=== PATIENT | male | born 1935 | race Caucasian/White ===

== ENCOUNTER → 2016-10-26 | Outpatient (CLI) | payer MEDICARE, BC | END | disposition home or self-care (01) | LOC: PCVCCLINIC 10:46 | PROVIDERS: ATTEND Internal Medicine Cardiovascular Disease | DX: I48.91 Unspecified atrial fibrillation (principal); I25.10 Atherosclerotic heart disease of native coronary artery without angina pectoris; I10 Essential (primary) hypertension; I77.89 Other specified disorders of arteries and arterioles; E11.9 Type 2 diabetes mellitus without complications; E78.00 Pure hypercholesterolemia, unspecified; Z90.49 Acquired absence of other specified parts of digestive tract; Z96.653 Presence of artificial knee joint, bilateral; Z87.891 Personal history of nicotine dependence; Z79.84 Long term (current) use of oral hypoglycemic drugs | CPT/HCPCS: 80061; 93005; G0463 ==

== ENCOUNTER → 2017-07-26 | Outpatient (CLI) | payer MEDICARE, BC | END | disposition home or self-care (01) | LOC: PCVCIMAG 12:19 | DX: I65.23 Occlusion and stenosis of bilateral carotid arteries (principal); I25.10 Atherosclerotic heart disease of native coronary artery without angina pectoris; I10 Essential (primary) hypertension; E78.5 Hyperlipidemia, unspecified; E11.9 Type 2 diabetes mellitus without complications; I48.2 Chronic atrial fibrillation; Z79.4 Long term (current) use of insulin; Z88.8 Allergy status to other drugs, medicaments and biological substances; Z87.891 Personal history of nicotine dependence; Z79.899 Other long term (current) drug therapy | CPT/HCPCS: 80061; 93005; 93880; G0463 ==

== ENCOUNTER → 2018-04-27 | Outpatient (CLI) | payer MEDICARE, BC | END | disposition home or self-care (01) | LOC: PCVCCLINIC 10:21 | PROVIDERS: ATTEND Internal Medicine Cardiovascular Disease | DX: I48.2 Chronic atrial fibrillation (principal); I25.10 Atherosclerotic heart disease of native coronary artery without angina pectoris; E11.9 Type 2 diabetes mellitus without complications; E78.00 Pure hypercholesterolemia, unspecified; I10 Essential (primary) hypertension; Z87.891 Personal history of nicotine dependence | CPT/HCPCS: 93005; G0463 ==

== ENCOUNTER → 2018-05-04 | Outpatient (CLI) | payer MEDICARE, BC ==
[~2018-05-04] MED LIST: REGADENOSON 0.4 MG/5 ML DISP.SYRIN. IV ONE
--- NOTE | 2018-05-05 12:47 | PCVCIMAG ---
APPROVED REPORT Imaging Protocol: Rest Tc-99m/Stress Tc-99m 1 day Study performed: 05/04/2018 12:55:27 Indication: Atrial Fibrillation Patient Location: Out-Patient Stress Nurse: Merary Melara RN, Ermelinda Nguyen RN [place] Tech:Esmer Renata [facility] Ht: 6 ft 1 in Wt: 230 lbs BSA: 2.28 m2 HR: 92 bpm BP: 121/73 mmHg BMI: 30.3 Rhythm: Atrial Fibrillation Medical History Medical History: HTN, Hyperlipidemia, Atrial Fibrillation, Diabetic Insulin, Former Smoker, CVD Medications: Xarelto, Tenormin, Atorvastatin, Chlorthalidone, Losartan, Insulin Allergies: Percocet Cardiac Risk Factors: Age Previous Cardiac Procedures: 2005 PCI Pretest Chest Pain Characteristics: No chest pain Exercise History: Physically active Meds Held (24 hrs): Tenormin Resting Data Rest SPECT myocardial perfusion imaging was performed in supine position 45 minutes following the intravenous injection of 11.9 mCi of Tc-99m Sestamibi. Time of rest injection: 1215 Date: 05/04/2018 Administration Route: IV Administration Site: Right AC Pharmacologic Stress Pharmacologic stress test was performed by injecting Regadenoson 0.4 mg IV push over 10-15 seconds immediately followed by the intravenous injection of 31.1 mCi of Tc-99m Sestamibi. Time of stress injection: 1340 Date: 05/04/2018 Administration Route: IV Administration Site: Right AC Gated Stress SPECT was performed 45 minutes after stress injection. The images were gated to evaluate regional wall motion and calculate left ventricular ejection fraction. Comments Prior Nuclear Stress Test 2016 - Nonischemic Stress Test Details Stress Test: Pharmacologic stress testing performed using 0.4 mg of regadenoson per 5 mL given IV over 10 seconds. Reason for pharmacologic stress test: Atrial Fibrillation, RVR. HRMax Heart Rate (APMHR): 140 bpm Resting HR: 92 bpmTarget HR (85% APMHR): 119 bpm Max HR Achieved: 112 bpm % of APMHR: 80 Recovery HR: 103 bpm BP Resting BP: 121/73 mmHg Max BP: 137/79 mmHg Recovery BP: 122/66 mmHg ECG Resting ECG: Atrial Fibrillation Stress ECG: Atrial Fibrillation Arrhythmia: PVC's Recovery ECG: Atrial Fibrillation Clinical Reason for Termination: Completed protocol Stress Symptoms: Dyspnea Exercise duration: 0 min 55 sec Symptoms resolved with caffeine. Stress ECG Conclusion ECG: Non-ischemic Study Quality Study: Good Study Data Post stress, the left ventricular ejection was 67%.. SSS: 0 SRS: 1 SDS: 0 TID = 0.86. Perfusion No evidence of stress induced ischemia or prior myocardial infarction. Wall Motion Normal left ventricular size and function with no regional wall motion abnormalities. Nuclear Conclusion No evidence of stress induced ischemia or prior myocardial infarction. Normal left ventricular size and function with no regional wall motion abnormalities. Post stress, the left ventricular ejection was 67%. No change since prior study dated December 2015. Interpreted by: Sudheer Horn MD Electronically Approved: 05/04/2018 22:40:13 <Conclusion> ECG: Non-ischemic
== END | disposition home or self-care (01) ==
LOC: PCVCIMAG 11:19
PROVIDERS: ATTEND Internal Medicine Cardiovascular Disease
DX: I48.91 Unspecified atrial fibrillation (principal)
CPT/HCPCS: 78452; 93017; A9500; J2785